=== PATIENT | male | born 1960 | race Caucasian/White ===

== ENCOUNTER 2020-09-04 08:02 | Outpatient (REF) | payer OTHER, SELFPAY ==
[2020-09-04 09:25] LABS: Estimated Average Glucose 114 mg/dL; Hemoglobin A1c % 5.6 %
[2020-09-04 12:18] LABS: PSA,Total (Free>4and<10) 2.08 ng/mL (0.00-4.00)
== END 2020-09-04 08:03 | disposition home or self-care (01) ==
LOC: HO.LAB 08:02
PROVIDERS: Visit Provider Internal Medicine
DX: R97.20 Elevated prostate specific antigen [PSA] (principal); R73.09 Other abnormal glucose
CPT/HCPCS: 83036; 84153

== ENCOUNTER 2020-09-22 06:56 | Outpatient (REF) | payer OTHER, SELFPAY ==
[2020-09-22 07:19] LABS: MANUAL DIFF FLAG NO
[2020-09-22 07:22] LABS: Basophils Percent Auto 0.5 % (0-2); Eosinophils Absolute Auto 0.4 X10*3/uL (0.0-0.4); Eosinophils Percent Auto 7.6 % (0-4); Hematocrit 46.6 % (42-52); Hemoglobin 15.1 g/dl (14.0-18.0); Imm Gran Abs Auto 0.01 X10*3/uL (0.00-0.03); Imm Gran Pct Auto 0.2 % (0.0-0.4); Lymphocytes Percent Auto 36.8 % (20-40); Mean Corpuscular HGB Conc 32.4 g/dl (31.0-36.0); Mean Corpuscular Volume 92.6 fL (80-98); Mean Platelet Volume 9.9 fL (9.4-12.4); Monocytes Absolute Auto 0.5 X10*3/uL (0.1-1.2); Monocytes Percent Auto 8.8 % (2-11); Neutrophils Absolute Auto 2.6 X10*3/uL (2.0-8.3); Neutrophils Percent Auto 46.1 % (45-73); Platelet Count 220 X10*3/uL (160-400); Red Blood Count 5.03 X10*6/uL (4.60-5.80); Red Cell Distribution Width 12.1 % (11.0-16.0); White Blood Count 5.5 X10*3/uL (4.8-10.8)
[2020-09-22 07:57] LABS: Alanine Aminotransferase 18 U/L (0-40); Albumin Level 4.6 g/dL (3.5-5.0); Alkaline Phosphatase 48 U/L (39-117); Anion Gap 13 (12-20); Aspartate Amino Transferase 16 U/L (5-37); Bilirubin Total 0.7 mg/dL (0.0-1.0); Blood Urea Nitrogen 25 mg/dL (9-16); Calcium 8.9 mg/dL (8.4-10.2); Carbon Dioxide 28 mmol/L (22-29); Chloride 105 mmol/L (96-108); Cholesterol 189 mg/dL; Estimated Glomerular Filt Rate > 60; Glucose Random 108 mg/dL (60-115); HDL Cholesterol 83 mg/dL; LDL Cholesterol Calculated 88 mg/dl; Potassium 4.3 mmol/l (3.3-5.1); Sodium 142 mmol/L (135-145); Total Protein 7.2 g/dL (6.5-8.0); Triglycerides 93 mg/dL
[2020-09-22 08:19] LABS: Free T4 (Free Thyroxine) 1.08 ng/dL (0.71-1.85); Thyroid Stimulating Hormone 1.48 uIU/mL (0.32-4.0)
[2020-09-22 09:17] LABS: Folate 16.2 ng/mL (> or = 4.0); Vitamin B12 454 pg/mL (200-900)
== END 2020-09-22 06:57 | disposition home or self-care (01) ==
LOC: HO.LAB 06:56
PROVIDERS: PCP Internal Medicine; Visit Provider Internal Medicine
DX: I25.10 Atherosclerotic heart disease of native coronary artery without angina pectoris (principal); I10 Essential (primary) hypertension; E78.00 Pure hypercholesterolemia, unspecified
CPT/HCPCS: 36415; 80053; 80061; 82607; 82746; 84439; 84443; 85025

== ENCOUNTER 2020-12-02 06:21 | Inpatient (IN) | payer OTHER, SELFPAY ==
[2020-12-02] VITALS (11 sets, daily range): BP systolic 102–137; BP diastolic 51–71; PULSE 65–90; RESP 16–32; TEMP 35.7–39.1; O2SAT 94–98; BMI 22.1
--- NOTE | ~2020-12-02 | XR_ITS ---
EXAMINATION: XR CHEST CLINICAL INFORMATION: Weakness, confusion, rales right base. COMPARISON: Chest radiographs 09/21/2012, 02/02/2009. TECHNIQUE: Portable upright AP x2 views of the chest was obtained. FINDINGS: There is coarsening of the bronchiolar markings bilateral lower zones with suggestion small groundglass opacities right lateral base and left posterior base. There is no lobar or segmental airspace consolidation. The heart is normal in size. The vascularity is normal. The costophrenic sulci are clear. The hilar and mediastinal contours are normal. Bony structures are unremarkable. XR/XR chest 1V IMPRESSION: Coarsening bronchiolar markings bilateral lower zones with mild bibasilar groundglass opacities. Findings may be related to atypical/viral pneumonia.
--- NOTE | ~2020-12-02 | CT_ITS ---
EXAMINATION: CT HEAD WITHOUT CONTRAST CLINICAL INFORMATION: Change in mental status, confusion. COMPARISON: CT brain 04/07/2011 TECHNIQUE: Contiguous axial imaging was performed from the skull base to vertex without intravenous administration of contrast. Additional 2-D coronal and sagittal reformatted images are generated on the CT workstation and uploaded to PACS. This CT examination was performed using dose optimization techniques as appropriate, variously including the following: *Automated exposure control *Adjustment of mA and/or kV according to patient size (this includes techniques or standardized protocols for targeted exams where dose is matched to indication/reason for exam; i.e. extremities or head) *Use of iterative reconstruction technique DLP: 698 mGy-cm FINDINGS: There is no intracranial hemorrhage, hematoma, or extra-axial fluid collection. The ventricles are normal in size. There is no hydrocephalus, edema, or mass effect. The olivera-white matter differentiation appears symmetric. There is no visible acute territorial infarct or mass lesion. Incidental left scleral banding. The calvarium appears intact. There is no pneumocephalus or orbital emphysema. The visualized sinuses and middle ears and mastoid air cells show no significant mucosal thickening. There are no air-fluid levels. CT/CT head/brain wo con IMPRESSION: No acute intracranial abnormality.
--- NOTE | 2020-12-02 06:51 | PC.NURSE ---
Per patient's brother (Deni), [employer] called Deni to let him know that Sher has not shown up to work over the weekend, and was late for other shifts throughout the week, which is unlike the patient. 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 When Deni contacted the patient about missing work, he thought his breathing just seems weird, like he's just working harder. So I asked him if he was coughing or having chest pain, and he said 'yes' to me on the phone. Then when I got to his house, I noticed that he had a bowel movement in his bed and wasn't going to the bathroom for some reason. When I told him to get dressed to bring him to the ER, he walked around naked holding his underwear and I had to help him get dressed. These behaviors aren't like him. I looked at his pill box, and noticed that he hasn't been taking his medications since Monday. He takes Aspirin 81mg and Simvastatin. I'm not sure if he maybe got exposed to COVID at work or not by accident, but he always wears his mask at work. Information relayed to and Leah Rios RN.
--- NOTE | 2020-12-02 07:46 | ED_ITS ---
HPI - General Adult General Chief complaint: Altered Mental Status Stated complaint: SOB Time Seen by Provider: 12/02/20 07:08 Source: patient, family and RN notes reviewed Limitations: altered mental status History of Present Illness HPI narrative: 60-year-old male brought to the emergency department by his brother for evaluation of confusion with unknown onset time, possibly 4-5 days. The patient is oriented to person and place, he was not able to tell me his age, he was not able to tell me the year, he was able to state his date. 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 The following information was obtained from the patient's brother by the ED nurse, please see the information below. Per patient's brother (Deni), [employer] called Deni to let him know that Sher has not shown up to work over the weekend, and was late for other shifts throughout the week, which is unlike the patient. 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 When Deni contacted the patient about missing work, he thought his breathing just seems weird, like he's just working harder. So I asked him if he was coughing or having chest pain, and he said 'yes' to me on the phone. Then when I got to his house, I noticed that he had a bowel movement in his bed and wasn't going to the bathroom for some reason. When I told him to get dressed to bring him to the ER, he walked around naked holding his underwear and I had to help him get dressed. These behaviors aren't like him. I looked at his pill box, and noticed that he hasn't been taking his medications since Monday. He takes Aspirin 81mg and Simvastatin. I'm not sure if he maybe got exposed to COVID at work or not by accident, but he always wears his mask at work. Related Data Home Medications Medication Instructions Recorded Confirmed aspirin 81 mg tablet,delayed 81 mg PO DAILY 09/11/20 12/02/20 release Previous Rx's Medication Instructions Recorded simvastatin 40 mg tablet 40 mg PO BEDTIME #90 cap 08/28/20 Allergies Allergy/AdvReac Type Severity Reaction Status Date / Time No Known Allergies Allergy Verified 12/02/20 06:39 Review of Systems Review of Systems: Yes Unobtainable due to mental status REPLACED BY [facility] Past Medical History Medical History Atrial fibrillation CAD (coronary artery disease) Central retinal vein occlusion, left eye Cognitive impairment COPD (chronic obstructive pulmonary disease) CVA (cerebral vascular accident) Hypercholesterolemia Hypertension Peripheral vascular disease Seizure disorder Vitamin D deficiency Surgical History History of cataract surgery History of prostate biopsy History of toe surgery Family History Family History Father Hypertension Mother CVD (cardiovascular disease) Stroke Myocardial infarction Maternal Grandmother Rectal cancer Paternal Uncle Gastric cancer Maternal Uncle Stroke Social History Social History Alcohol intake: never Smoking Status: Never smoker Use of substances other than those prescribed or required for medical reasons: No Advance Directives: No Physical Exam Vital Signs: Vital Signs: Last Vital Signs Temp 98.6 F 12/02/20 07:35 Pulse 84 12/02/20 11:19 Resp 32 H 12/02/20 11:19 BP 125/61 12/02/20 11:19 Pulse Ox 97 12/02/20 11:19 Body Mass Index 22.1 Const: General: cooperative Orientation/consciousness: oriented to person and oriented to place Limitations: no limitations HENMT: Head: Yes normal to inspection, Yes normocephalic and Yes atraumatic Ears: external ears normal General nose exam: Normal external nose present Face and sinus: Yes normal facial exam Mouth: Normal oral and palatal mucosa present Throat: Yes posterior oropharynx normal Eyes: Periorbital: periorbital findings normal Eyelids: Yes eyelids normal Conjunctivae: conjunctivae normal Sclerae: sclerae normal Corneas: corneas normal Pupils: Equal, round and reactive pupils present Direct Ophthalmoscopy: normal light reflex Neck: Neck: Yes full ROM, Yes no lymphadenopathy, Yes no meningeal signs, Yes trachea midline and Yes supple Chest: Chest palpation & inspection: normal inspection of the chest and normal palpation of entire chest wall Resp: Effort & Inspection: normal respiratory effort and able to speak in complete sentences Auscultation: rales on the right at the base Cardio: Rate: regular rate Rhythm: regular rhythm Heart sounds: S1 normal heart sound present, S2 normal heart sound present and no murmurs GI: Inspection: Yes normal to inspection Palpation (GI): Soft to palpation, nontender, no guarding, not rigid and No hepatosplenomegaly present : General: Yes no CVA tenderness Back/Spine/Pelvis: Back: no CVA tenderness Cervical Spine: normal cervical lordosis Thoracic/Lumbar Spine: thoracic and lumbar spine normal to inspection Skin: Lesions: no lesions Rashes: no rashes Wounds: no wounds Neuro: General: oriented to person, oriented to place and no meningeal signs Cranial nerves: Yes CN's II-XII intact bilaterally and Yes Equal, round and reactive pupils present Cognition (Neuro): normal cognition Motor exam (neuro): 5/5 motor strength present throughout Extrem: General: Yes normal to inspection and Yes full ROM Psych: Appearance: well kempt Speech and movement: Normal speech and movement present Affect: normal affect Attitude: cooperative Thought process: Normal thought process present Thought content: Normal thought content present Course Course Course Narrative: 60-year-old male who presents emergency department for evaluation of altered level of consciousness, information was obtained from the patient's brother. The patient's symptoms may have been going on for 4-5 days, patient may have had a cough and shortness of breath. On physical examination, the patient is awake, alert, oriented to person and place, it is unclear if his inability to answer questions is due cognitive impairment caused by cardiac arrest 18 was 13 years old. Patient's vital signs reveal that it was afebrile, O2 saturation was 96% on room air, respiratory rate varied from 16-30, blood pre ssure was 108/61 with a normal map of 76. Lung exam did reveal rales at the right base concerned the patient may have pneumonia. I ordered a septic workup, COVID-19 screen , chest x-ray and CT scan of the brain. Patient was ordered to get normal saline bolus 30 milliliters/kilogram IV. 0933: The patient's laboratory evaluation revealed an elevated BUN of 32 with a creatinine of 1.14 suggesting that is volume depleted. The patient's COVID-19 test is positive. Chest x-ray is concerning for bilateral interstitial pneumonia which is most likely a COVID-19 viral pneumonia however atypical b acterial pneumonia also needs be considered. I did order ceftriaxone 1 g IV and azithromycin 500 mg IV. Was also ordered to get Decadron 10 mg IV. The patient does have elevation in his LFTs with an AST and ALT of 62 and 50. I suspect that this patient is hypoxic and this may be the cause of his confusion at home. The patient lives alone and does have cognitive impairment and I do not think that he can be managed as an outpatient. I will discuss the patient's presentation with the covering hospitalist. 1000: I did discuss the patient's presentation with the covering hospitalist, the patient will be admitted for COVID-19 pneumonia and encephalopathy. An ABG was ordered to evaluate for possible hypoxia. 1122: Patient's ABG revealed no significant hypoxia. I did discuss my findings with the patient's brother, Deni who is the patient's healthcare proxy and power of insurance defense attorney. The brother states that he and the patient want to pursue all possible medical management but they do not want intubation or chest compressions in the event that he decompensates. Medical Decision Making Lab Data Result diagrams: 12/02/20 08:30 12/02/20 08:30 Labs: Lab Results 12/02/20 12/02/20 12/02/20 Range/Units 08:30 08:30 08:30 WBC 10.3 (4.8-10.8) X10*3/uL RBC 4.95 (4.60-5.80) X10*6/uL Hgb 14.8 (14.0-18.0) g/dl Hct 44.0 (42-52) % MCV 88.9 (80-98) fL MCH 29.9 (27.0-33.0) pg MCHC 33.6 (31.0-36.0) g/dl RDW 11.8 (11.0-16.0) % Plt Count 193 (160-400) X10*3/uL MPV 10.3 (9.4-12.4) fL Immature Gran % (Auto) 0.3 (0.0-0.4) % Neut % (Auto) 86.4 H (45-73) % Lymph % (Auto) 6.1 L (20-40) % Elmore % (Auto) 7.1 (2-11) % Eos % (Auto) 0.0 (0-4) % Baso % (Auto) 0.1 (0-2) % Lymph # (Auto) 0.6 L (1.2-4.9) X10*3/uL Elmore # (Auto) 0.7 (0.1-1.2) X10*3/uL Eos # (Auto) 0.0 (0.0-0.4) X10*3/uL Baso # (Auto) 0.0 (0.0-0.2) X10*3/uL Abs Immat Gran (auto) 0.03 (0.00-0.03) X10*3/uL Absolute Neuts (auto) 8.9 H (2.0-8.3) X10*3/uL Absolute Nucleated RBC 0.000 (0.0-0.012) X10*3/uL Nucleated RBC % (auto) 0.0 (0.0-0.2) /100WBC Smear Tech's Comments VERIFIED ESR (0-15) MM/HR PT 16.1 H (10.8-13.0) SEC INR 1.4 H (0.9-1.1) APTT 35.9 (24.1-38.0) SEC D-Dimer 619 NG/ML O2 Saturation % ABG pH at Pt Temp (7.35-7.45) ABG pCO2 at Pt Temp (32-45) mmHg ABG pO2 at Pt Temp (83-108) mmHg ABG HCO3 (22-26) mmol/L ABG Base Excess (Actual) mmol/L Sodium 136 (135-145) mmol/L Potassium 3.9 (3.3-5.1) mmol/L Chloride 97 (96-108) mmol/L Carbon Dioxide 27 (22-29) mmol/L Anion Gap 16 (12-20) BUN 32 H (9-16) mg/dL Creatinine 1.14 (0.5-1.4) mg/dL Estim Creat Clear Calc 66.5 Estimated GFR > 60 Random Glucose 111 (60-115) mg/dL Lactic Acid (0.5-2.0) mmol/L Calcium 8.4 (8.4-10.2) mg/dL Ferritin 2485 H (20-250) ng/mL Total Bilirubin 1.1 H (0.0-1.0) mg/dL AST 62 H (5-37) U/L ALT 50 H (0-40) U/L Alkaline Phosphatase 43 (39-117) U/L Lactate Dehydrogenase 499 H (118-273) U/L Troponin I High Sens (<3.5-35.0) ng/L C-Reactive Protein 16.34 H (< or = 0.50) mg/dL Total Protein 7.1 (6.5-8.0) g/dL Albumin 4.1 (3.5-5.0) g/dL Lipase 48 (8-78) U/L TSH 0.48 (0.32-4.0) uIU/mL Ethyl Alcohol mg/dL COVID-19 ([facility]) (Negative) COVID-19 Clin Com 12/02/20 12/02/20 12/02/20 Range/Units 08:30 08:30 08:30 WBC (4.8-10.8) X10*3/uL RBC (4.60-5.80) X10*6/uL Hgb (14.0-18.0) g/dl Hct (42-52) % MCV (80-98) fL MCH (27.0-33.0) pg MCHC (31.0-36.0) g/dl RDW (11.0-16.0) % Plt Count (160-400) X10*3/uL MPV (9.4-12.4) fL Immature Gran % (Auto) (0.0-0.4) % Neut % (Auto) (45-73) % Lymph % (Auto) (20-40) % Elmore % (Auto) (2-11) % Eos % (Auto) (0-4) % Baso % (Auto) (0-2) % Lymph # (Auto) (1.2-4.9) X10*3/uL Elmore # (Auto) (0.1-1.2) X10*3/uL Eos # (Auto) (0.0-0.4) X10*3/uL Baso # (Auto) (0.0-0.2) X10*3/uL Abs Immat Gran (auto) (0.00-0.03) X10*3/uL Absolute Neuts (auto) (2.0-8.3) X10*3/uL Absolute Nucleated RBC (0.0-0.012) X10*3/uL Nucleated RBC % (auto) (0.0-0.2) /100WBC Smear Tech's Comments ESR (0-15) MM/HR PT (10.8-13.0) SEC INR (0.9-1.1) APTT (24.1-38.0) SEC D-Dimer NG/ML O2 Saturation % ABG pH at Pt Temp (7.35-7.45) ABG pCO2 at Pt Temp (32-45) mmHg ABG pO2 at Pt Temp (83-108) mmHg ABG HCO3 (22-26) mmol/L ABG Base Excess (Actual) mmol/L Sodium (135-145) mmol/L Potassium (3.3-5.1) mmol/L Chloride (96-108) mmol/L Carbon Dioxide (22-29) mmol/L Anion Gap (12-20) BUN (9-16) mg/dL Creatinine (0.5-1.4) mg/dL Estim Creat Clear Calc Estimated GFR Random Glucose (60-115) mg/dL Lactic Acid 1.3 (0.5-2.0) mmol/L Calcium (8.4-10.2) mg/dL Ferritin (20-250) ng/mL Total Bilirubin (0.0-1.0) mg/dL AST (5-37) U/L ALT (0-40) U/L Alkaline Phosphatase (39-117) U/L Lactate Dehydrogenase (118-273) U/L Troponin I High Sens 5.1 (<3.5-35.0) ng/L C-Reactive Protein (< or = 0.50) mg/dL Total Protein (6.5-8.0) g/dL Albumin (3.5-5.0) g/dL Lipase (8-78) U/L TSH (0.32-4.0) uIU/mL Ethyl Alcohol mg/dL COVID-19 ([facility]) Positive A (Negative) COVID-19 Clin Com See Note 12/02/20 12/02/20 12/02/20 Range/Units 08:30 08:30 10:28 WBC (4.8-10.8) X10*3/uL RBC (4.60-5.80) X10*6/uL Hgb (14.0-18.0) g/dl Hct (42-52) % MCV (80-98) fL MCH (27.0-33.0) pg MCHC (31.0-36.0) g/dl RDW (11.0-16.0) % Plt Count (160-400) X10*3/uL MPV (9.4-12.4) fL Immature Gran % (Auto) (0.0-0.4) % Neut % (Auto) (45-73) % Lymph % (Auto) (20-40) % Elmore % (Auto) (2-11) % Eos % (Auto) (0-4) % Baso % (Auto) (0-2) % Lymph # (Auto) (1.2-4.9) X10*3/uL Elmore # (Auto) (0.1-1.2) X10*3/uL Eos # (Auto) (0.0-0.4) X10*3/uL Baso # (Auto) (0.0-0.2) X10*3/uL Abs Immat Gran (auto) (0.00-0.03) X10*3/uL Absolute Neuts (auto) (2.0-8.3) X10*3/uL Absolute Nucleated RBC (0.0-0.012) X10*3/uL Nucleated RBC % (auto) (0.0-0.2) /100WBC Smear Tech's Comments ESR 59 H (0-15) MM/HR PT (10.8-13.0) SEC INR (0.9-1.1) APTT (24.1-38.0) SEC D-Dimer NG/ML O2 Saturation 96.0 % ABG pH at Pt Temp 7.46 H (7.35-7.45) ABG pCO2 at Pt Temp 27 L (32-45) mmHg ABG pO2 at Pt Temp 81 L (83-108) mmHg ABG HCO3 19 L (22-26) mmol/L ABG Base Excess (Actual) -2.7 mmol/L Sodium (135-145) mmol/L Potassium (3.3-5.1) mmol/L Chloride (96-108) mmol/L Carbon Dioxide (22-29) mmol/L Anion Gap (12-20) BUN (9-16) mg/dL Creatinine (0.5-1.4) mg/dL Estim Creat Clear Calc Estimated GFR Random Glucose (60-115) mg/dL Lactic Acid (0.5-2.0) mmol/L Calcium (8.4-10.2) mg/dL Ferritin (20-250) ng/mL Total Bilirubin (0.0-1.0) mg/dL AST (5-37) U/L ALT (0-40) U/L Alkaline Phosphatase (39-117) U/L Lactate Dehydrogenase (118-273) U/L Troponin I High Sens (<3.5-35.0) ng/L C-Reactive Protein (< or = 0.50) mg/dL Total Protein (6.5-8.0) g/dL Albumin (3.5-5.0) g/dL Lipase (8-78) U/L TSH (0.32-4.0) uIU/mL Ethyl Alcohol < 10 mg/dL COVID-19 ([facility]) (Negative) COVID-19 Clin Com Imaging Data Chest x-ray: Attestation: I personally reviewed and interpreted this imaging study as follows: My impression: Bilateral interstitial infiltrates consistent with acute viral pneumonia versus atypical bacterial pneumonia Radiologist's impression: IMPRESSION: Coarsening bronchiolar markings bilateral lower zones with mild bibasilar groundglass opacities. Findings may be related to atypical/viral pneumonia. Dictated By:MIKEY HERNANDEZ MD ECG Data Attestation: I personally reviewed and interpreted this ECG as follows: Interpretation: 0828: Normal sinus rhythm with a rate of 81, normal OH interval, prolonged QRS interval of 104 milliseconds, normal QTC interval, no ST segment elevation or depression, no T-wave abnormalities, nonspecific interventricular conduction delay, no old EKG for comparison. Discharge Plan Discharge Clinical Impression: Pneumonia due to COVID-19 virus, Encephalopathy, Tachypnea, Acute dehydration Patient Disposition: Admitted As Inpatient
--- NOTE | 2020-12-02 08:01 | ECG_ITS ---
Test Reason : ALTER MENTAL Blood Pressure : / mmHG Vent. Rate : 081 BPM Atrial Rate : 081 BPM P-R Int : 134 ms QRS Dur : 104 ms QT Int : 368 ms P-R-T Axes : 073 013 061 degrees QTc Int : 427 ms Normal sinus rhythm Normal ECG When compared with ECG of 04-NOV-2016 14:43, No significant change was found Referred By: Reynold Romero Electronically Signed By:Bandar Zamora
[2020-12-02 08:45] LABS: Basophils Percent Auto 0.1 % (0-2); Hemoglobin 14.8 g/dl (14.0-18.0); Imm Gran Abs Auto 0.03 X10*3/uL (0.00-0.03); Imm Gran Pct Auto 0.3 % (0.0-0.4); Lymphocytes Absolute Auto 0.6 X10*3/uL (1.2-4.9); Lymphocytes Percent Auto 6.1 % (20-40); MANUAL DIFF FLAG SCAN; Mean Corpuscular HGB Conc 33.6 g/dl (31.0-36.0); Mean Corpuscular Hemoglobin 29.9 pg (27.0-33.0); Mean Corpuscular Volume 88.9 fL (80-98); Mean Platelet Volume 10.3 fL (9.4-12.4); Monocytes Absolute Auto 0.7 X10*3/uL (0.1-1.2); Monocytes Percent Auto 7.1 % (2-11); Neutrophils Absolute Auto 8.9 X10*3/uL (2.0-8.3); Neutrophils Percent Auto 86.4 % (45-73); Platelet Count 193 X10*3/uL (160-400); Red Blood Count 4.95 X10*6/uL (4.60-5.80); Red Cell Distribution Width 11.8 % (11.0-16.0); SCAN SMEAR FLAG 1; White Blood Count 10.3 X10*3/uL (4.8-10.8)
[2020-12-02 08:48] LABS: COVID-19 Test Positive (Negative); IDNOW Serial# 9DD0AD1C; INTERNATIONAL NORM RATIO 1.4 (0.9-1.1); Prothrombin Time 16.1 SEC (10.8-13.0)
[2020-12-02 08:51] LABS: Partial Thromboplastin Time 35.9 SEC (24.1-38.0)
[2020-12-02 09:00] LABS: Lactic Acid 1.3 mmol/L (0.5-2.0)
[2020-12-02 09:03] LABS: Ethanol < 10 mg/dL
[2020-12-02 09:07] LABS: Alanine Aminotransferase 50 U/L (0-40); Albumin Level 4.1 g/dL (3.5-5.0); Alkaline Phosphatase 43 U/L (39-117); Anion Gap 16 (12-20); Aspartate Amino Transferase 62 U/L (5-37); Bilirubin Total 1.1 mg/dL (0.0-1.0); Blood Urea Nitrogen 32 mg/dL (9-16); Calcium 8.4 mg/dL (8.4-10.2); Carbon Dioxide 27 mmol/L (22-29); Chloride 97 mmol/L (96-108); Creatinine Clr Calc Pharmacy 66.5; Estimated Glomerular Filt Rate > 60; Glucose Random 111 mg/dL (60-115); Lipase 48 U/L (8-78); Potassium 3.9 mmol/L (3.3-5.1); SLIDE REVIEW VERIFIED; Sodium 136 mmol/L (135-145); Total Protein 7.1 g/dL (6.5-8.0)
[2020-12-02 09:12] LABS: Troponin-I High Sensitivity 5.1 ng/L (<3.5-35.0)
[2020-12-02 09:27] LABS: TSH reflex Free T4 0.48 uIU/mL (0.32-4.0)
[2020-12-02 09:56] LABS: C Reactive Protein 16.34 mg/dL (< or = 0.50); D Dimer 619 NG/ML; Lactate Dehydrogenase 499 U/L (118-273)
[2020-12-02 10:32] LABS: ABG Refer to POC result
[2020-12-02 10:33] LABS: ABG Base Excess -2.7 mmol/L; ABG HCO3 19 mmol/L (22-26); ABG pCO2 27 mmHg (32-45); ABG pH 7.46 (7.35-7.45); ABG pO2 81 mmHg (83-108)
[2020-12-02 10:35] LABS: Erythrocyte Sedimentation Rate 59 MM/HR (0-15)
[2020-12-02 11:10] LABS: Ferritin 2485 ng/mL (20-250)
[2020-12-02] MEDS: 0.9 % Sodium Chloride 2,100 ML 2100 ML IVCONT (11:14)
[2020-12-02] MEDS: cefTRIAXone sodium 1 GM in 0.9 % Sodium Chloride 50 ML IV (11:14)
--- NOTE | 2020-12-02 11:29 | PC.NURSE ---
ABT HUNG ORDERED. RECTAL TEMP ELEVATED, AND SOME EXCORIATION NOTED AROUND PERINEUM. PT A&OX3 AT THIS TIME, SPEAKING IN CLEAR FULL SNENTECES. CURRENT SPO2 WNL, NOT CURRENTLY DEPENDENT ON SUPPLEMENTAL O2. REMAINS TACHYPNEIC, PT REPORTING SOB. HAS BEEN EVALUATED BY HOSPITALIST, TO BE ADMITTED. MED REC COMPLETED AT BEDSIDE.
[2020-12-02 11:44] LABS: Ammonia 32 umol/L (13-55)
[2020-12-02] MEDS: Acetaminophen 325 MG TABLET 975 MG PO (12:02)
[2020-12-02] MEDS: Azithromycin 500 MG in 0.9 % Sodium Chloride 250 ML 125 MG IV (12:04)
--- NOTE | 2020-12-02 12:06 | PM.IMHP ---
History of Present Illness Date of Service: 12/02/20 Chief Complaint: confusion This is a 60-year-old male with a past medical history of cardiac arrest at 13 years old, paroxysmal atrial fibrillation, Zhdsw-Iwtgphbyo-Fehye syndrome status post ablation who presents to hospital after a wellness check was requested by his brother as the patient had reportedly not shown up to [employer] where he works for the last several days. Patient has a history of cognitive impairment and so the history is largely obtained from the ED provider and the patient's brother, Deni also the healthcare proxy. Reportedly the patient was last visited by his brother 1 week prior to admission on 11/25/2020 and his brother also spoke to him on 11/27/2020 at which time he reports that the patient was at baseline. Deni received a phone call from [employer] reporting that the patient had showed a to work and so paramedics/police were called. When they arrived, the patient was reportedly confused and walking around his own home. It is unclear when the patient would have been exposed to COVID-19 but presumably this was at work as Deni reports that basically his brother spends his time between work and at home. The patient himself denies any shortness of breath but does remember feeling exhausted over the last 1 week or so. He knows that he is at the hospital but otherwise is disoriented which Jadondivine states is baseline. In the emergency room patient was found to be tachypneic with a respiratory rate in the 30s and febrile with a T-max of 102.3 degrees. His x-ray showed typical COVID findings. He was empirically treated with antibiotics, fluid bolus and Decadron and admission was requested. Review of Systems Review of Systems: Full ROS unreliable due to patients mental status (baseline confused) He does endorse feeling tired. Denies shortness of breath [facility] Medical History Atrial fibrillation CAD (coronary artery disease) Central retinal vein occlusion, left eye Cognitive impairment COPD (chronic obstructive pulmonary disease) CVA (cerebral vascular accident) Hypercholesterolemia Hypertension Peripheral vascular disease Seizure disorder Vitamin D deficiency Family History Father Hypertension Mother CVD (cardiovascular disease) Stroke Myocardial infarction Maternal Grandmother Rectal cancer Paternal Uncle Gastric cancer Maternal Uncle Stroke Surgical History History of cataract surgery History of prostate biopsy History of toe surgery Social History Alcohol intake: never Smoking Status: Never smoker Use of substances other than those prescribed or required for medical reasons: No Advance Directives: No Meds Allergies Allergy/AdvReac Type Severity Reaction Status Date / Time No Known Allergies Allergy Verified 12/02/20 06:39 Home Medications Medication Instructions Recorded Confirmed Last Taken Type aspirin 81 mg tablet,delayed 81 mg PO DAILY 09/11/20 12/02/20 1 Day Ago History release ~12/01/20 Physical Exam Vital Signs and Narrative: Vital Signs: Last Vital Signs Temp 102.3 F H 12/02/20 11:29 Pulse 84 12/02/20 11:19 Resp 32 H 12/02/20 11:19 BP 125/61 12/02/20 11:19 Pulse Ox 97 12/02/20 11:19 Body Mass Index 22.1 Const: Other: Constitutional - Awake and Alert, No apparent distress Eyes - PERRLA, EOMI Cardiovascular - S1S2, RRR, No edema Respiratory - rhonchi, RR around 22, able to speak in full sentences Gastrointestinal - NT / ND; +BS; No rebound or guarding - No CVA tenderness Extremities - no calf tenderness bilaterally, no swelling Musculoskeletal - Normal inspection, normal ROM Skin - Warm/Dry Neurological - No focal deficits, disoriented Psychological - Appropriate affect Results Labs CBC and Chem 7: 12/02/20 08:30 12/02/20 08:30 Labs: Laboratory Results - last 24 hr 12/02/20 12/02/20 12/02/20 08:30 08:30 08:30 MCV 88.9 MCH 29.9 MCHC 33.6 RDW 11.8 Plt Count 193 MPV 10.3 Immature Gran % (Auto) 0.3 Neut % (Auto) 86.4 H Lymph % (Auto) 6.1 L [place] % (Auto) 7.1 Eos % (Auto) 0.0 Baso % (Auto) 0.1 Lymph # (Auto) 0.6 L [place] # (Auto) 0.7 Eos # (Auto) 0.0 Baso # (Auto) 0.0 Abs Immat Gran (auto) 0.03 Absolute Neuts (auto) 8.9 H Absolute Nucleated RBC 0.000 Nucleated RBC % (auto) 0.0 Smear Tech's Comments VERIFIED ESR PT 16.1 H INR 1.4 H APTT 35.9 D-Dimer 619 O2 Saturation ABG pH at Pt Temp ABG pCO2 at Pt Temp ABG pO2 at Pt Temp ABG HCO3 ABG Base Excess (Actual) Anion Gap 16 Estim Creat Clear Calc 66.5 Estimated GFR > 60 Random Glucose 111 Lactic Acid Calcium 8.4 Ferritin 2485 H Total Bilirubin 1.1 H AST 62 H ALT 50 H Alkaline Phosphatase 43 Ammonia Lactate Dehydrogenase 499 H Troponin I High Sens C-Reactive Protein 16.34 H Total Protein 7.1 Albumin 4.1 Lipase 48 TSH 0.48 Ethyl Alcohol COVID-19 ([facility]) [place] 12/02/20 12/02/20 12/02/20 08:30 08:30 08:30 MCV MCH MCHC RDW Plt Count MPV Immature Gran % (Auto) Neut % (Auto) Lymph % (Auto) [place] % (Auto) Eos % (Auto) Baso % (Auto) Lymph # (Auto) [place] # (Auto) Eos # (Auto) Baso # (Auto) Abs Immat Gran (auto) Absolute Neuts (auto) Absolute Nucleated RBC Nucleated RBC % (auto) Smear Tech's Comments ESR PT INR APTT D-Dimer O2 Saturation ABG pH at Pt Temp ABG pCO2 at Pt Temp ABG pO2 at Pt Temp ABG HCO3 ABG Base Excess (Actual) Anion Gap Estim Creat Clear Calc Estimated GFR Random Glucose Lactic Acid 1.3 Calcium Ferritin Total Bilirubin AST ALT Alkaline Phosphatase Ammonia Lactate Dehydrogenase Troponin I High Sens 5.1 C-Reactive Protein Total Protein Albumin Lipase TSH Ethyl Alcohol COVID-19 ([facility]) Positive A COVID-[employer] See Note 12/02/20 12/02/20 12/02/20 08:30 08:30 10:28 MCV MCH MCHC RDW Plt Count MPV Immature Gran % (Auto) Neut % (Auto) Lymph % (Auto) [place] % (Auto) Eos % (Auto) Baso % (Auto) Lymph # (Auto) [place] # (Auto) Eos # (Auto) Baso # (Auto) Abs Immat Gran (auto) Absolute Neuts (auto) Absolute Nucleated RBC Nucleated RBC % (auto) Smear Tech's Comments ESR 59 H PT INR APTT D-Dimer O2 Saturation 96.0 ABG pH at Pt Temp 7.46 H ABG pCO2 at Pt Temp 27 L ABG pO2 at Pt Temp 81 L ABG HCO3 19 L ABG Base Excess (Actual) -2.7 Anion Gap Estim Creat Clear Calc Estimated GFR Random Glucose Lactic Acid Calcium Ferritin Total Bilirubin AST ALT Alkaline Phosphatase Ammonia Lactate Dehydrogenase Troponin I High Sens C-Reactive Protein Total Protein Albumin Lipase TSH Ethyl Alcohol < 10 COVID-19 ([facility]) COVID-19 Clin Com 12/02/20 11:17 MCV MCH MCHC RDW Plt Count MPV Immature Gran % (Auto) Neut % (Auto) Lymph % (Auto) [place] % (Auto) Eos % (Auto) Baso % (Auto) Lymph # (Auto) [place] # (Auto) Eos # (Auto) Baso # (Auto) Abs Immat Gran (auto) Absolute Neuts (auto) Absolute Nucleated RBC Nucleated RBC % (auto) Smear Tech's Comments ESR PT INR APTT D-Dimer O2 Saturation ABG pH at Pt Temp ABG pCO2 at Pt Temp ABG pO2 at Pt Temp ABG HCO3 ABG Base Excess (Actual) Anion Gap Estim Creat Clear Calc Estimated GFR Random Glucose Lactic Acid Calcium Ferritin Total Bilirubin AST ALT Alkaline Phosphatase Ammonia 32 Lactate Dehydrogenase Troponin I High Sens C-Reactive Protein Total Protein Albumin Lipase TSH Ethyl Alcohol COVID-19 ([facility]) COVID-19 Clin Com Imaging Radiologist's Impressions: Impressions Chest X-Ray 12/02/20 07:58 IMPRESSION: Coarsening bronchiolar markings bilateral lower zones with mild bibasilar groundglass opacities. Findings may be related to atypical/viral pneumonia. Head CT 12/02/20 07:58 IMPRESSION: No acute intracranial abnormality. Assessment and Plan (1) COVID-19: Status: Acute This is a 60-year-old male with a history of cognitive impairment, cardiac arrest at the age of 13, amongst other issues who presents to the hospital with confusion and is diagnosed with COVID-19. 1. COVID-19 causing viral sepsis and toxic/metabolic encephalopathy Meets sepsis criteria with tachypnea and fevers No hypoxia at this time -- will consider Remdesivir + ID consult should this happen will start IV decadron Given Rocephin/Zithromax in the ED -- procalcitonin 0.34, trend; hold off antibiotics for the time being 2. PAF / WPV s/p ablation not on any OAC continue his aspirin 3. Abnormal LFTs suspect from COVID 19 trend will hold statin DNR/DNI -- as endorsed by the patients brother Deni, who is the HCP DVT pptx, Lovenox
[2020-12-02 13:30] LABS: Procalcitonin 0.34 ng/mL
[2020-12-02] MEDS: Enoxaparin Sodium 40 MG/0.4 ML SYRINGE SUBCUT (15:00)
[2020-12-02] MEDS: 0.9 % Sodium Chloride Flush 3 ML SYRINGE IVFLUSH ×2 (15:00→23:59)
--- NOTE | 2020-12-02 17:53 | PC.NURSE ---
REPORT GIVEN TO RN
[2020-12-03 03:39] VITALS: BP 111/60; PULSE 68; RESP 18; TEMP 37; O2SAT 96
[2020-12-03 07:25] VITALS: BP 112/64; PULSE 74; RESP 17; TEMP 36.2; O2SAT 93
[2020-12-03] MEDS: 0.9 % Sodium Chloride Flush 3 ML SYRINGE IVFLUSH ×3 (07:35→20:36)
[2020-12-03] MEDS: Aspirin Enteric Coated 81 MG TABLET.DR PO (09:18)
[2020-12-03] MEDS: dexAMETHasone sod phosphate 4 MG/ML VIAL 6 MG IVPUSH (09:18)
--- NOTE | 2020-12-03 11:11 | MHC.CM.PN ---
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 Patient able to shower, dress and cook for himself. Patient does have a HCP Deni [phone] and a copy is on file. Discussed discharge plan, home no services. Deni will provide transport but needs a 2 hr window. CM will continue to follow patient for discharge needs.
[2020-12-03 11:14] VITALS: BP 119/60; PULSE 87; RESP 18; TEMP 36.8; O2SAT 95
[2020-12-03] MEDS: Enoxaparin Sodium 40 MG/0.4 ML SYRINGE SUBCUT (13:21)
--- NOTE | 2020-12-03 14:13 | PC.NURSE ---
pt was ambulatory to bathroom and had moderate loose BM. He was cleaned and walked back to recliner. Pt has had no complaints of pain, will continue to monitor
--- NOTE | 2020-12-03 14:50 | P.PNIM_ITS ---
Subjective Subjective Date of Service: 12/03/20 Interval History: The patient was seen and evaluated this morning Laying in bed, feels comfortable, weaned off the oxygen Denies any fever, chills or chest pain but feels generally tired No reported other overnight events. Systemic review: No fever, chills but reports overall weakness No chest pain, palpitation Mild shortness of breath or coughing No abdominal pain, nausea or vomiting No urinary symptoms No any rash or wounds Physical Exam Vital Signs: Vital Signs: Last Vital Signs Temp 98.3 F 12/03/20 11:14 Pulse 87 12/03/20 11:14 Resp 18 12/03/20 11:14 BP 119/60 12/03/20 11:14 Pulse Ox 95 12/03/20 11:14 Body Mass Index 22.1 Const: Other: Constitutional : Alert, oriented, not in distress Neck : Normal inspection, Supple Cardiovascular : Nausea VD, no lower extremity edema Respiratory : Not in respiratory distress, bilateral chest wall movement Gastrointestinal: soft, lax, Normal bowel sounds, Non tender Skin : Warm/Dry, No rash Neurological : Alert & oriented , mildly confused, No focal deficit Objective Data Current Medications Generic Name Dose Route Start Last Admin Trade Name Freq PRN Reason Stop Dose Admin Aspirin 81 mg 12/03/20 09:00 12/03/20 09:18 Aspirin Enteric Coated 81 Mg Tablet. PO 81 mg DAILY MYRIAM Administration Dexamethasone Sodium Phosphate 6 mg 12/03/20 09:00 12/03/20 09:18 Dexamethasone Sod Phosphate 4 Mg/Ml Vial IVPUSH 12/11/20 09:01 6 mg DAILY MYRIAM Administration Enoxaparin Sodium 40 mg 12/02/20 13:00 12/03/20 13:21 Enoxaparin Sodium 40 Mg/0.4 Ml Syringe SUBCUT 40 mg Q24H MYRIAM Administration Sodium Chloride 3 ml 12/02/20 16:00 12/03/20 07:35 0.9 % Sodium Chloride Flush 3 Ml Syringe IVFLUSH 3 ml QSHIFT MYRIAM Administration Labs CBC & Chem 7: 12/02/20 08:30 12/02/20 08:30 Microbiology Microbiology Results: Microbiology 12/02/20 08:37 Blood - Venous Blood Culture - Preliminary No growth after 24 hours. 12/02/20 08:34 Blood - Venous Blood Culture - Preliminary No growth after 24 hours. Assessment and Plan (1) COVID-19: Status: Acute Assessment and Plan: This is a 60-year-old male with a history of cognitive impairment, cardiac arr est at the age of 13, amongst other issues who presents to the hospital with confusion and is diagnosed with COVID-19. COVID-19 causing viral sepsis Toxic/metabolic encephalopathy Improving No hypoxia at this time Hold on remdesivir Continue IV decadron hold off antibiotics for the time being Transaminitis suspect from COVID 19 Continue to monitor will hold statin PAF / WPV s/p ablation not on any OAC continue his aspirin DNR/DNI -- as endorsed by the patients brother Deni, who is the HCP DVT pptx Lovenox
[2020-12-03 15:28] VITALS: BP 116/57; PULSE 82; RESP 18; TEMP 36.5; O2SAT 94
[2020-12-03 19:17] VITALS: BP 115/59; PULSE 80; RESP 18; TEMP 37; O2SAT 96
[2020-12-03 23:18] VITALS: BP 110/64; PULSE 71; RESP 20; TEMP 36; O2SAT 95
[2020-12-04 04:00] VITALS: BP 135/61; PULSE 66; RESP 18; TEMP 36.8; O2SAT 95
[2020-12-04 07:08] LABS: Alanine Aminotransferase 57 U/L (0-40); Albumin Level 3.6 g/dL (3.5-5.0); Alkaline Phosphatase 42 U/L (39-117); Anion Gap 15 (12-20); Aspartate Amino Transferase 65 U/L (5-37); Bilirubin Direct 0.3 mg/dL (0.0-0.5); Bilirubin Total 0.5 mg/dL (0.0-1.0); Blood Urea Nitrogen 23 mg/dL (9-16); C Reactive Protein 6.74 mg/dL (< or = 0.50); Calcium 8.3 mg/dL (8.4-10.2); Carbon Dioxide 26 mmol/L (22-29); Chloride 103 mmol/L (96-108); Creatinine Clr Calc Pharmacy 93.6; Estimated Glomerular Filt Rate > 60; Glucose Random 124 mg/dL (60-115); Lactate Dehydrogenase 482 U/L (118-273); Potassium 4.4 mmol/L (3.3-5.1); Sodium 140 mmol/L (135-145); Total Protein 6.2 g/dL (6.5-8.0)
[2020-12-04 07:18] VITALS: BP 115/61; PULSE 72; RESP 18; TEMP 36.6; O2SAT 93
[2020-12-04] MEDS: 0.9 % Sodium Chloride Flush 3 ML SYRINGE IVFLUSH (07:31)
[2020-12-04] MEDS: dexAMETHasone sod phosphate 4 MG/ML VIAL 6 MG IVPUSH (08:46)
[2020-12-04] MEDS: Aspirin Enteric Coated 81 MG TABLET.DR PO (08:46)
[2020-12-04 11:11] VITALS: BP 118/61; PULSE 77; RESP 16; TEMP 36.2; O2SAT 98
--- NOTE | 2020-12-04 11:13 | PM.DS ---
DS: Providers Provider Date of Service: 12/04/20 Date of admission: 12/02/20 13:19 Primary care physician: Carly Briceño MD DS: Diagnosis Discharge Diagnosis (1) COVID-19: Status: Acute (2) Pneumonia due to COVID-19 virus: Status: Acute (3) Encephalopathy: Status: Acute (4) Tachypnea: Status: Acute (5) Acute dehydration: Status: Acute DS: Medications Discharge Medications Home Medications: Home Medications Medication Instructions Recorded Confirmed aspirin 81 mg tablet,delayed 81 mg PO DAILY 09/11/20 12/02/20 release Previous Rx's Medication Instructions Recorded simvastatin 40 mg tablet 40 mg PO BEDTIME #90 cap 08/28/20 dexamethasone 6 mg PO DAILY #7 tab 12/04/20 DS: Summary Hospital Course Hospital Course: Admission note HPI This is a 60-year-old male with a past medical history of cardiac arrest at 13 years old, paroxysmal atrial fibrillation, Luqps-Bbhfhrbop-Xfngs syndrome status post ablation who presents to hospital after a wellness check was requested by his brother as the patient had reportedly not shown up to [employer] where he works for the last several days. Patient has a history of cognitive impairment and so the history is largely obtained from the ED provider and the patient's brother, Deni also the healthcare proxy. Reportedly the patient was last visited by his brother 1 week prior to admission on 11/25/2020 and his brother also spoke to him on 11/27/2020 at which time he reports that the patient was at baseline. Deni received a phone call from [employer] reporting that the patient had showed a to work and so paramedics/police were called. When they arrived, the patient was reportedly confused and walking around his own home. It is unclear when the patient would have been exposed to COVID-19 but presumably this was at work as Deni reports that basically his brother spends his time between work and at home. The patient himself denies any shortness of breath but does remember feeling exhausted over the last 1 week or so. He knows that he is at the hospital but otherwise is disoriented which Deni states is baseline. In the emergency room patient was found to be tachypneic with a respiratory rate in the 30s and febrile with a T-max of 102.3 degrees. His x-ray showed typical COVID findings. He was empirically treated with antibiotics, fluid bolus and Decadron and admission was requested. Hospital course The patient was admitted to the hospital for encephalopathy as a result COVID-19 infection dehydration. The patient did not qualify for remdesivir as he was not hypoxic but treated with IV dexamethasone with fair response. Did not require antibiotic and event spike fever during the hospital stay. He was able to ambulate freely on the room air with no drop of his oxygen. Noted to have transaminitis which likely result of COVID-19 and started to trend down along with CRP and LDH. to be discharged home on 7 more days of dexamethasone Time Spent with Patient Time attestation: Total time spent providing and/or coordinating discharge services: Discharge coordination time: Greater than 30 minutes Physical Exam Vital Signs: Vital Signs: Last Vital Signs Temp 97.9 F 12/04/20 07:18 Pulse 72 12/04/20 07:18 Resp 18 12/04/20 07:18 BP 115/61 12/04/20 07:18 Pulse Ox 93 12/04/20 07:18 Body Mass Index 22.1 Const: Other: Constitutional : Alert, oriented, not in distress Neck : Normal inspection, Supple Cardiovascular : RRR, S1 S2, no lower extremity edema Respiratory : Good bilateral air entry, no crackles, wheezes or rhonchi Gastrointestinal: soft, lax, Normal bowel sounds, Non tender Skin : Warm/Dry, No rash Neurological : Alert & oriented x3, No focal deficit DS: Data Data Completed and Pending Labs on day of discharge: Laboratory Results - last 24 hr 12/04/20 05:55 Sodium 140 Potassium 4.4 Chloride 103 Carbon Dioxide 26 Anion Gap 15 BUN 23 H Creatinine 0.81 Estim Creat Clear Calc 93.6 Estimated GFR > 60 Random Glucose 124 H Calcium 8.3 L Total Bilirubin 0.5 Direct Bilirubin 0.3 AST 65 H ALT 57 H Alkaline Phosphatase 42 Lactate Dehydrogenase 482 H C-Reactive Protein 6.74 H Total Protein 6.2 L Albumin 3.6 Preliminary micro results at discharge 12/02/20 08:37 Blood Culture - Preliminary Blood - Venous No growth after 48 hours. 12/02/20 08:34 Blood Culture - Preliminary Blood - Venous No growth after 48 hours. Discharge Plan Discharge Patient Disposition: Home, Self-Care Referrals: Carly Briceño MD [Primary Care Provider] - 1 Week (Please call and schedule a follow up appointment.) Discharge Medications: New dexamethasone 6 mg tablet 6 mg PO DAILY Qty: 7 RF: 0 Continued simvastatin 40 mg tablet 40 mg PO BEDTIME Qty: 90 RF: 1 aspirin [Adult Aspirin Regimen] 81 mg tablet,delayed release (DR/EC) 81 mg PO DAILY RF: 0 Discharge Orders: Discharge Order (Routine); Ordered 12/04/20 Ordered By: Javon Curry Diet: advance to usual diet Activity on Discharge: As tolerated Stand Alone Forms: Patient Portal Discharge page Care Plan Goals: Read below Health Concerns: Read below Plan of Treatment: You were admitted to the hospital for evaluation confusion. Found to dehydration and COVID-19 infection. Treated with IV fluid steroids with good response over the hospital stay course. Continue dexamethasone for 7 more days Keep yourself isolated for the next 7 days.
--- NOTE | 2020-12-04 12:06 | MHC.CM.PN ---
Pt is cleared to DC today, home with no services. CM met with pt who reports feeling ready to DC and being aware of the need to quarantine and follow COVID-19 precautions. CM contacted pts brother/HCP, Deni ([phone]) who reports he plans to transport pt home at [place]. Deni is aware the pt is COVID positive. He reports he was with the pt prior to admission and was the one who brought him to the ED. He reports he has a COVID test scheduled for Monday. Jadondivine reports he plans to have the pt sit in the back seat, they will both keep masks on and once pt exits the vehicle, Deni with disinfect it. Jadondivine reports he also has the pts house keys and cell phone which he will bring with him. Deni reports he lives quite a distance away and should be able to be here around 1500 hours. He will call when he arrives. Pt will be discharged home today with no services pts brother will provide transportation
[2020-12-04] MEDS: Enoxaparin Sodium 40 MG/0.4 ML SYRINGE SUBCUT (12:59)
== END 2020-12-04 14:49 | disposition home or self-care (01) | DRG 720 ==
LOC: HO.ED 10:17 → HO.EDOVER 15:06 → HO.IMC 17:16
PROVIDERS: Admitting Provider Family Medicine; Emergency Provider Emergency Medicine Emergency Medical Services; PCP Internal Medicine; Visit Provider Student in an Organized Health Care Education/Training Program
DX: A41.89 Other specified sepsis (principal); U07.1 COVID-19; G92 Toxic encephalopathy; G31.84 Mild cognitive impairment of uncertain or unknown etiology; E86.0 Dehydration; G40.909 Epilepsy, unspecified, not intractable, without status epilepticus; I48.0 Paroxysmal atrial fibrillation; R74.01 Elevation of levels of liver transaminase levels; J12.82 Pneumonia due to coronavirus disease 2019; R06.82 Tachypnea, not elsewhere classified; I25.10 Atherosclerotic heart disease of native coronary artery without angina pectoris; Z86.73 Personal history of transient ischemic attack (TIA), and cerebral infarction without residual deficits; Z79.82 Long term (current) use of aspirin; Z79.899 Other long term (current) drug therapy; Z66 Do not resuscitate
CPT/HCPCS: 36415; 70450; 71045; 80048; 80053; 80076; 80320; 82140; 82728; 83605; 83615; 83690; 84145; 84443; 84484; 85025; 85379; 85610; 85652; 85730; 86140; 87040; 87635; 93005; 96365; 96366; 96368; 96375; 99285; J0456; J0696; J1100; J1650

== ENCOUNTER 2021-09-07 06:51 | Outpatient (REF) | payer OTHER, SELFPAY ==
[2021-09-07 07:03] LABS: MANUAL DIFF FLAG NO
[2021-09-07 07:21] LABS: Basophils Percent Auto 0.5 % (0-2); Eosinophils Absolute Auto 0.5 X10*3/uL (0.0-0.4); Eosinophils Percent Auto 7.3 % (0-4); Hemoglobin 16.1 g/dl (14.0-18.0); Imm Gran Abs Auto 0.02 X10*3/uL (0.00-0.03); Imm Gran Pct Auto 0.3 % (0.0-0.4); Lymphocytes Absolute Auto 2.5 X10*3/uL (1.2-4.9); Mean Corpuscular HGB Conc 33.5 g/dl (31.0-36.0); Mean Corpuscular Hemoglobin 30.1 pg (27.0-33.0); Mean Corpuscular Volume 89.9 fL (80.0-98.0); Mean Platelet Volume 10.1 fL (9.4-12.4); Monocytes Absolute Auto 0.5 X10*3/uL (0.1-1.2); Monocytes Percent Auto 8.6 % (2-11); Neutrophils Absolute Auto 2.7 x10*3/uL (2.0-8.3); Neutrophils Percent Auto 43.3 % (45-73); Platelet Count 229 X10*3/uL (160-400); Red Blood Count 5.34 X10*6/uL (4.60-5.80); Red Cell Distribution Width 11.9 % (11.0-16.0); White Blood Count 6.3 X10*3/uL (4.8-10.8)
[2021-09-07 07:28] LABS: Estimated Average Glucose 117 mg/dL; Hemoglobin A1c % 5.7 %
[2021-09-07 07:45] LABS: Alanine Aminotransferase 15 U/L (0-40); Albumin Level 4.6 g/dL (3.5-5.0); Alkaline Phosphatase 52 U/L (39-117); Anion Gap 14 (12-20); Aspartate Amino Transferase 14 U/L (5-37); Bilirubin Total 1.2 mg/dL (0.0-1.0); Blood Urea Nitrogen 23 mg/dL (9-16); Calcium 9.7 mg/dL (8.4-10.2); Carbon Dioxide 27 mmol/L (22-29); Chloride 105 mmol/L (96-108); Cholesterol 202 mg/dL; Estimated Glomerular Filt Rate > 60; Glucose Random 99 mg/dL (60-115); HDL Cholesterol 82 mg/dL; LDL Cholesterol Calculated 97 mg/dl; Potassium 3.8 mmol/L (3.3-5.1); Sodium 142 mmol/L (135-145); Total Protein 7.2 g/dL (6.5-8.0); Triglycerides 119 mg/dL
[2021-09-07 08:11] LABS: Free T4 (Free Thyroxine) 1.01 ng/dL (0.71-1.85); Thyroid Stimulating Hormone 2.09 uIU/mL (0.32-4.0)
[2021-09-07 08:43] LABS: Prostate Specific Antigen Scr 2.42 ng/mL (<0.05-4.0)
[2021-09-07 08:46] LABS: Folate 16.6 ng/mL (> or = 4.0); Vitamin B12 487 pg/mL (200-900)
== END 2021-09-07 06:52 | disposition home or self-care (01) ==
LOC: HO.LAB 06:51
PROVIDERS: PCP Internal Medicine; Visit Provider Internal Medicine
DX: Z12.5 Encounter for screening for malignant neoplasm of prostate (principal); E78.00 Pure hypercholesterolemia, unspecified; R73.02 Impaired glucose tolerance (oral); I10 Essential (primary) hypertension
CPT/HCPCS: 36415; 80053; 80061; 82607; 82746; 83036; 84153; 84439; 84443; 85025

== ENCOUNTER 2021-10-18 06:45 | Outpatient (REF) | payer OTHER, SELFPAY ==
[2021-10-18 06:56] LABS: MANUAL DIFF FLAG NO
[2021-10-18 07:12] LABS: Basophils Percent Auto 0.7 % (0-2); Eosinophils Absolute Auto 0.4 X10*3/uL (0.0-0.4); Eosinophils Percent Auto 6.7 % (0-4); Hemoglobin 15.1 g/dl (14.0-18.0); Imm Gran Abs Auto 0.01 X10*3/uL (0.00-0.03); Imm Gran Pct Auto 0.2 % (0.0-0.4); Lymphocytes Absolute Auto 2.3 X10*3/uL (1.2-4.9); Lymphocytes Percent Auto 39.8 % (20-40); Mean Corpuscular HGB Conc 33.6 g/dl (31.0-36.0); Mean Corpuscular Volume 92.4 fL (80.0-98.0); Monocytes Absolute Auto 0.6 X10*3/uL (0.1-1.2); Monocytes Percent Auto 10.8 % (2-11); Neutrophils Absolute Auto 2.5 x10*3/uL (2.0-8.3); Neutrophils Percent Auto 41.8 % (45-73); Platelet Count 231 X10*3/uL (160-400); Red Blood Count 4.87 X10*6/uL (4.60-5.80); Red Cell Distribution Width 12.4 % (11.0-16.0); White Blood Count 5.9 X10*3/uL (4.8-10.8)
[2021-10-18 07:22] LABS: Estimated Average Glucose 111 mg/dL; Hemoglobin A1c % 5.5 %
[2021-10-18 07:35] LABS: Alanine Aminotransferase 21 U/L (0-40); Albumin Level 4.6 g/dL (3.5-5.0); Alkaline Phosphatase 50 U/L (39-117); Anion Gap 13 (12-20); Aspartate Amino Transferase 15 U/L (5-37); Blood Urea Nitrogen 21 mg/dL (9-16); Calcium 9.9 mg/dL (8.4-10.2); Carbon Dioxide 28 mmol/L (22-29); Chloride 108 mmol/L (96-108); Cholesterol 188 mg/dL; Estimated Glomerular Filt Rate > 60; Glucose Random 108 mg/dL (60-115); HDL Cholesterol 89 mg/dL; LDL Cholesterol Calculated 84 mg/dl; Sodium 145 mmol/L (135-145); Total Protein 7.2 g/dL (6.5-8.0); Triglycerides 76 mg/dL
[2021-10-18 07:55] LABS: Free T4 (Free Thyroxine) 0.91 ng/dL (0.71-1.85); Prostate Specific Antigen Scr 2.39 ng/mL (<0.05-4.0); Thyroid Stimulating Hormone 1.12 uIU/mL (0.32-4.0)
[2021-10-18 10:13] LABS: Folate 17.4 ng/mL (> or = 4.0); Vitamin B12 473 pg/mL (200-900)
== END 2021-10-18 06:46 | disposition home or self-care (01) ==
LOC: HO.LAB 06:45
PROVIDERS: PCP Internal Medicine; Visit Provider Internal Medicine
DX: E78.00 Pure hypercholesterolemia, unspecified (principal); R73.02 Impaired glucose tolerance (oral); N40.0 Benign prostatic hyperplasia without lower urinary tract symptoms; I10 Essential (primary) hypertension; Z12.5 Encounter for screening for malignant neoplasm of prostate
CPT/HCPCS: 36415; 80053; 80061; 82607; 82746; 83036; 84153; 84439; 84443; 85025

== ENCOUNTER 2022-02-08 06:29 | Outpatient (REF) | payer OTHER, SELFPAY ==
[2022-02-08 07:48] LABS: Estimated Average Glucose 114 mg/dL; Hemoglobin A1C 149.8565 umol/L; Hemoglobin A1c % 5.6 %
[2022-02-08 08:07] LABS: Alanine Aminotransferase 17 U/L (0-40); Albumin Level 4.4 g/dL (3.5-5.0); Alkaline Phosphatase 49 U/L (39-117); Anion Gap 11 (12-20); Aspartate Amino Transferase 13 U/L (5-37); Blood Urea Nitrogen 23 mg/dL (9-16); Calcium 9.4 mg/dL (8.4-10.2); Carbon Dioxide 26 mmol/L (22-29); Chloride 105 mmol/L (96-108); Cholesterol 185 mg/dL; Estimated Glomerular Filt Rate > 60; Glucose Random 105 mg/dL (60-115); HDL Cholesterol 88 mg/dL; LDL Cholesterol Calculated 89 mg/dl; Potassium 4.3 mmol/L (3.3-5.1); Sodium 138 mmol/L (135-145); Total Protein 6.9 g/dL (6.5-8.0); Triglycerides 43 mg/dL
== END 2022-02-08 06:30 | disposition home or self-care (01) ==
LOC: HO.LAB 06:29
PROVIDERS: PCP Internal Medicine; Visit Provider Internal Medicine
DX: E78.00 Pure hypercholesterolemia, unspecified (principal)
CPT/HCPCS: 36415; 80053; 80061; 83036

== ENCOUNTER 2022-08-09 06:52 | Outpatient (REF) | payer OTHER, SELFPAY ==
[2022-08-09 07:51] LABS: Estimated Average Glucose 114 mg/dL; Hemoglobin A1c % 5.6 %
[2022-08-09 08:06] LABS: Alanine Aminotransferase 23 U/L (0-40); Albumin Level 4.5 g/dL (3.5-5.0); Alkaline Phosphatase 70 U/L (39-117); Anion Gap 15 (12-20); Aspartate Amino Transferase 16 U/L (5-37); Blood Urea Nitrogen 22 mg/dL (9-16); Calcium 9.3 mg/dL (8.4-10.2); Carbon Dioxide 26 mmol/L (22-29); Chloride 107 mmol/L (96-108); Cholesterol 172 mg/dL; Estimated Glomerular Filt Rate > 60; Glucose Random 100 mg/dL (60-115); HDL Cholesterol 78 mg/dL; LDL Cholesterol Calculated 79 mg/dl; Potassium 4.2 mmol/L (3.3-5.1); Sodium 144 mmol/L (135-145); Total Protein 7.1 g/dL (6.5-8.0); Triglycerides 78 mg/dL
== END 2022-08-09 06:53 | disposition home or self-care (01) ==
LOC: HO.LAB 06:52
PROVIDERS: PCP Internal Medicine; Visit Provider Internal Medicine
DX: E78.00 Pure hypercholesterolemia, unspecified (principal)
CPT/HCPCS: 36415; 80053; 80061; 83036

== ENCOUNTER 2022-11-29 06:42 | Outpatient (REF) | payer OTHER, SELFPAY ==
[2022-11-29 06:51] LABS: MANUAL DIFF FLAG NO
[2022-11-29 07:47] LABS: Basophils Percent Auto 0.5 % (0-2); Eosinophils Absolute Auto 0.5 X10*3/uL (0.0-0.4); Eosinophils Percent Auto 8.2 % (0-4); Hematocrit 44.8 % (42.0-52.0); Hemoglobin 14.7 g/dl (14.0-18.0); Imm Gran Abs Auto 0.01 X10*3/uL (0.00-0.03); Imm Gran Pct Auto 0.2 % (0.0-0.4); Lymphocytes Percent Auto 36.2 % (20-40); Mean Corpuscular HGB Conc 32.8 g/dl (31.0-36.0); Mean Corpuscular Hemoglobin 29.4 pg (27.0-33.0); Mean Corpuscular Volume 89.6 fL (80.0-98.0); Mean Platelet Volume 10.2 fL (9.4-12.4); Monocytes Absolute Auto 0.6 X10*3/uL (0.1-1.2); Monocytes Percent Auto 11.6 % (2-11); Neutrophils Absolute Auto 2.4 x10*3/uL (2.0-8.3); Neutrophils Percent Auto 43.3 % (45-73); Platelet Count 206 X10*3/uL (160-400); Red Cell Distribution Width 12.1 % (11.0-16.0); White Blood Count 5.5 X10*3/uL (4.8-10.8)
[2022-11-29 08:17] LABS: Alanine Aminotransferase 24 U/L (0-40); Albumin Level 4.2 g/dL (3.5-5.0); Alkaline Phosphatase 57 U/L (39-117); Anion Gap 14 (12-20); Aspartate Amino Transferase 16 U/L (5-37); Bilirubin Total 1.2 mg/dL (0.0-1.0); Blood Urea Nitrogen 19 mg/dL (9-16); Calcium 8.9 mg/dL (8.4-10.2); Carbon Dioxide 24 mmol/L (22-29); Chloride 106 mmol/L (96-108); Cholesterol 149 mg/dL; Estimated Glomerular Filt Rate > 60; Glucose Random 89 mg/dL (60-115); HDL Cholesterol 78 mg/dL; LDL Cholesterol Calculated 59 mg/dl; Potassium 4.1 mmol/L (3.3-5.1); Sodium 140 mmol/L (135-145); Total Protein 6.4 g/dL (6.5-8.0); Triglycerides 62 mg/dL
[2022-11-29 08:45] LABS: Free T4 (Free Thyroxine) 0.99 ng/dL (0.71-1.85); Thyroid Stimulating Hormone 1.78 uIU/mL (0.32-4.0); Vitamin B12 474 pg/mL (200-900)
== END 2022-11-29 06:43 | disposition home or self-care (01) ==
LOC: HO.LAB 06:42
PROVIDERS: PCP Internal Medicine; Visit Provider Internal Medicine
DX: Z12.5 Encounter for screening for malignant neoplasm of prostate (principal); I25.10 Atherosclerotic heart disease of native coronary artery without angina pectoris; E78.00 Pure hypercholesterolemia, unspecified
CPT/HCPCS: 36415; 80053; 80061; 82607; 82746; 84153; 84439; 84443; 85025

== ENCOUNTER 2023-05-16 08:51 | Outpatient (AMB) | payer OTHER, SELFPAY ==
[2023-05-16 08:54] VITALS: BP 122/86; PULSE 95; O2SAT 97; BMI 24.2
--- NOTE | 2023-05-16 08:54 | A.OFFVIS_ITS ---
Intake Vital Signs 05/16/23 08:54 Height 5 ft 10 in Weight 169 lb BMI 24.2 BP 122/86 Blood Pressure Location Lt brachial Position Sitting Pulse 95 Pulse Source Pulse Oximeter Temp Source Skin Pulse Oximetry (%) 97 Oxygen Delivery Method Room Air Intake Visit Reasons: AWV Intake Note: Patient is here for an Annual Wellness Visit. 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 Patient of Dr. Briceño. Today we discussed patient's need for colon cancer screening, patient declined at this time and he would like to think about Cologuard or colonoscopy. Up-to-date with immunizations. [place] of care was reviewed with the patient and he was provided with a hi reening schedule. Healthcare proxy is on file and patient was provided with a MOLST form. [facility] Medical History Atrial fibrillation CAD (coronary artery disease) Central retinal vein occlusion, left eye Cognitive impairment COPD (chronic obstructive pulmonary disease) COVID-19 CVA (cerebral vascular accident) Hypercholesterolemia Hypertension Peripheral vascular disease Pneumonia due to COVID-19 virus Seizure disorder Vitamin D deficiency Surgical History History of cataract surgery History of prostate biopsy History of toe surgery Family History Father Hypertension Mother CVD (cardiovascular disease) Stroke Myocardial infarction Maternal Grandmother Rectal cancer Paternal Uncle Gastric cancer Maternal Uncle Stroke Social History Household Members: None Housing: Apartment Do you presently have visiting nurse or other home services: No Alcohol intake: never Patient Tobacco Use Status: Never used Tobacco e-Cigarette/Vaping Use: Never Used Second Hand Smoke Exposure: No service: No Current occupational status: employed Current occupational exposures/hazards: No Cognitive needs: No Hearing needs: No Vision needs: Yes Questionnaire Medicare Wellness Checkup [age] What gender do you identify with?: male During the past 4 weeks, how much have you been bothered by emotional problems such as feeling anxious, depressed, irritable, sad or downhearted, and blue?: not at all During the past 4 weeks, has your physical & emotional health limited your social activities with family, friends, neighbors, or groups?: not at all During the past 4 weeks, how much bodily pain have you generally had?: no pain During the past 4 weeks, was someone available to help you if you needed & wanted help?: no, not at all During the past 4 weeks, what was the hardest physical activity you could do for at least 2 minutes?: light Can you get to places out of walking distance without help? (For eg., can you travel alone on buses, taxis or drive your car?): Yes Can you go shopping for groceries or clothes without someone's help?: Yes Can you prepare your own meals?: Yes Can you do your housework without help?: Yes Because of any health problems, do you need the help of another person with your personal care needs such as eating, bathing, dressing or getting around the house?: No Can you handle your own money without help?: Yes During the past 4 weeks, how would you rate your health in general?: excellent During the past 4 weeks how have things been going for you?: pretty well Are you having difficulties driving your car?: not applicable, I don't use a car Do you always fasten your seat belt when you are in a car?: yes, usually During past 4 weeks, have you been bothered by the following: never: Falling or dizzy when standing up, Sexual problems?, Teeth or denture problems? and Problems using the telephone? and sometimes: Trouble eating well? and Tiredness or fatigue? Have you fallen 2 or more times in the past year?: No Are you afraid of falling?: No Are you a smoker?: no During the past 4 weeks, how many drinks of wine, beer, or other alcoholic beverages did you have?: no alcohol at all Have you been given information to help with the following?: no: Hazards in your house that might hurt you? and no: Keeping track of your medications? How often do you have trouble taking medicines the way you have been told to take them?: I always take medicine as prescribed How confident are you that you can control & manage most of your health problems?: very confident What is your race?: White Mini Mental State Exam (MMSE) Orientation What is the (year) (season) (date) (day) (month)?: year, season, date, day and month Score Score: 5 Activity of Daily Living Bathing - sponge bath, tub bath or shower: receives no assistance (gets in/out by self, if usual bathing means Dressing - getting clothes from closets & drawers, including inner/outer garments & fasteners.: gets clothes & gets completely dressed without help Toileting - going to the 'toilet room' for urine/bowel elimination & cleaning self/arranging clothes: goes to toilet room, cleans self, arranges clothes without help Transfer: moves in & out of bed and chair without help (may use support object) Continence: controls urination/bowel movements completely by self Feeding: feeds self without help Total Score: 0 Information obtained from: patient Using telephone: independent Traveling: dependent Shopping: independent Preparing meals: independent Housework: independent Taking medicine: independent Managing money: independent PHQ-9 Over the last 2 weeks, how often have you been bothered by any of the following problems? 1. Little interest or pleasure in doing things: not at all 2. Feeling down, depressed, or hopeless: not at all 3. Trouble falling or staying asleep, or sleeping too much: not at all 4. Feeling tired or having little energy: not at all 5. Poor appetite or overeating: not at all 6. Feeling bad about yourself - or that you are a failure or have let yourself or your family down: not at all 7. Trouble concentrating on things, such as reading the newspaper or watching television: not at all 8. Moving or speaking so slowly that other people could have noticed. Or the opposite - being so fidgety or restless that you have been moving around a lot more than usual: not at all 9. Thoughts that you would be better off or of hurting yourself in some way: not at all Total score: 0 Depression Screening Interpretation: Negative 80599 - PHQ-9 Billing: Yes Source: Developed by Drs. Martir Montiel, Sarah Garcia, Virgilio Sage and colleagues, with an educational dolores from [employer]. JOYCE-7 AMB Questionnaire JOYCE-7 Date JOYCE - 7 assessed: 12/15/22 Feeling nervous, anxious, or on edge: 0 = Not at all Not being able to stop or control worryin = Not at all Worrying too much about different things: 0 = Not at all Trouble relaxin = Not at all Being so restless that it is hard to sit still: 0 = Not at all Becoming easily annoyed or irritable: 0 = Not at all Feeling afraid as if something awful might happen: 0 = Not at all Total JOYCE-7 score (0-4 normal; 5-9 mild; 10-14 moderate; 15-21 severe): 0 Source: Developed by Drs. Martir Montiel, Sarah Garcia, Virgilio Sage and colleagues, with an educational dolores from [employer]. JOYCE-7 Assessment Billing JOYCE-7 Assessment Tool: JOYCE-7 Assessment 49136 AUDIT C Alcohol Use Questionnaire (AUDIT-C) 1. How often do you have a drink containing alcohol?: Never Total Score: 0 Score Reviewed/Action Taken: No Thrive Questionnaire Date Thrive assessed: 05/16/23 I am a: Patient What is your living situation today?: I have a steady place to live Within the past 12 months, did the food you bought not last and you didn't have the money to get more?: Never true Within the past 12 months, did you worry whether your food would run out before you got money to buy more?: Never true Currently or been in a relationship where the following occur: no concerns reported Physical Exam Vital Signs: Last Vital Signs Pulse 95 05/16/23 08:54 BP 122/86 05/16/23 08:54 Pulse Ox 97 05/16/23 08:54 Oxygen Delivery Method Room Air 05/16/23 08:54 BMI result Body Mass Index 24.2 Const General: cooperative and no acute distress Orientation/consciousness: patient oriented x3 HEENT Other: Whisper test: pass Neuro Other: Balance: Normal Get up and walk: able to Romberg: negative Tandem gait: able to General: patient oriented x3 Assessment & Plan Assessment & Plan (1) Annual physical exam: Code(s): Z00.00 - Encounter for general adult medical examination without abnormal findings (2) Impaired glucose tolerance: Code(s): R73.02 - Impaired glucose tolerance (oral) Plan: A1c 5.6 07/2022 (3) Hypercholesterolemia: Code(s): E78.00 - Pure hypercholesterolemia, unspecified Plan: Continue atorvastatin 80 mg daily Low-cholesterol diet (4) COPD (chronic obstructive pulmonary disease): Code(s): J44.9 - Chronic obstructive pulmonary disease, unspecified Plan: Stable Continue albuterol inhaler p.r.n. (5) Hypertension: Code(s): I10 - Essential (primary) hypertension Plan: Goal BP equal or less than 140/90 Low-sodium diet Not on pharmacological intervention at this time (6) Colonoscopy refused: Code(s): Z53.20 - Procedure and treatment not carried out because of patient's decision for unspecified reasons Quality Reporting (2019) Depression/Bipolar (159/160/161/177) PHQ-9: Total score: 0 Coding Level of Care Code Medicare First (G0438) Diagnoses Annual physical exam Z00.00 Impaired glucose tolerance R73.02 Hypercholesterolemia E78.00 COPD (chronic obstructive pulmonary disease) J44.9 Hypertension I10 Colonoscopy refused Z53.20 CPT Codes Advance Care Planning - Advance Care Planning discussion: On file, no changes ([id number]) Advance Care Planning - Time spent: 1-15 minutes, on File ([id number]) Additional Codes JOYCE-7 Assessment Billing - JOYCE-7 Assessment Tool: JOYCE-7 Assessment 77033 ([id number]) Advance Care Planning Advance Care Planning discussion: On file, no changes Date of discussion: 05/16/23 Who was present: pt and synthetic cloth binding 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
== END 2023-05-16 09:25 | disposition home or self-care (01) ==
PROVIDERS: PCP Internal Medicine; Visit Provider Nurse Practitioner Family
DX: Z00.00 Encounter for general adult medical examination without abnormal findings (principal); R73.02 Impaired glucose tolerance (oral); J44.9 Chronic obstructive pulmonary disease, unspecified; I10 Essential (primary) hypertension; E78.00 Pure hypercholesterolemia, unspecified
CPT/HCPCS: 1123F; G0438

== ENCOUNTER 2023-08-22 08:23 | Outpatient (AMB) | payer MEDICARE, SELFPAY ==
--- NOTE | 2023-08-22 08:31 | A.OFFPC_ITS ---
Vital Signs 08/22/23 08:33 Height 5 ft 10 in Weight 170 lb 4 oz BMI 24.4 BP 110/64 Blood Pressure Location Lt brachial Position Sitting Pulse 79 Pulse Source Pulse Oximeter Pulse Oximetry (%) 94 Oxygen Delivery Method Room Air Intake Visit Reasons: 3mth f/u Intake Note: Patient is here to follow up on HTN, COPD, CAD. Ultrasound Technologist Sonographer Required: No Non Destructive Testing Specialist: Present Accompanied by: Brother Allergies No Known Allergies Allergy (Verified 08/22/23 08:43) Medication List - Last Reconciled 08/22/23 by GUALBERTO Hensley albuterol sulfate 90 mcg/actuation (ProAir HFA) 2 puffs inhalation Q6H PRN aspirin (Adult Aspirin Regimen) 81 mg PO DAILY atorvastatin 80 mg PO DAILY Tobacco use date assessed: 08/22/23 Fall risk assessment: No Falls in past year Last assessed Fall Risk: 08/22/23 Dental Screening Dental Screen Date: 08/22/23 Did you have a dental visit in the last 12 months?: Yes Did you have a dental problem in the last 6 months where you did not have access to dental care?: No Was dental information given to patient?: Patient has dentist HPI HPI Comments History of Present Illness Details 63-year-old male past medical history si gnificant for CAD, hypertension, COPD, hypercholesteremia, impaired glucose tolerance. Patient of last seen in May. Patient presents today for follow-up visit. Patient denies any acute concerns. Last complete blood work obtained in November, fasting lab work entered. [facility] Medical History Atrial fibrillation CAD (coronary artery disease) Central retinal vein occlusion, left eye Cognitive impairment COPD (chronic obstructive pulmonary disease) COVID-19 CVA (cerebral vascular accident) Hypercholesterolemia Hypertension Peripheral vascular disease Pneumonia due to COVID-19 virus Seizure disorder Vitamin D deficiency Surgical History History of prostate biopsy History of toe surgery History of cataract surgery Family History Father Hypertension Mother CVD (cardiovascular disease) Stroke Myocardial infarction Maternal Grandmother Rectal cancer Paternal Uncle Gastric cancer Maternal Uncle Stroke (Reviewed 08/22/23 @ 08:32 by XENA Savage Household Members: None Housing: Apartment Do you presently have visiting nurse or other home services: No Alcohol intake: never Patient Tobacco Use Status: Never used Tobacco e-Cigarette/Vaping Use: Never Used Second Hand Smoke Exposure: No service: No Current occupational status: employed Current occupational exposures/hazards: No Cognitive needs: No Hearing needs: No Vision needs: Yes Questionnaire Thrive Questionnaire Date Thrive assessed: 05/16/23 JOYCE-7 AMB Questionnaire JOYCE-7 Date JOYCE - 7 assessed: 12/15/22 Source: Developed by Drs. Martir Montiel, Sarah Garcia, Virgilio Sage and colleagues, with an educational dolores from [employer]. Review of Systems Const Denies chills, Denies fatigue, Denies fever(s) and Denies poor appetite Eyes Denies no additional complaints ENT Reports Normal hearing present Card Denies chest pain, Denies syncope, Denies rapid heart rate and Denies dyspnea Resp Denies cough and Denies dyspnea GI Denies change in stool character, Denies constipation, Denies diarrhea, Denies nausea and Denies vomiting Denies dysuria, Denies urinary frequency and Denies urinary urgency Neuro Reports Normal hearing present, Denies confusion and Denies syncope Psych Denies confusion Endo Denies fatigue Physical exam (Primary Care) Vital Signs: Last Vital Signs Pulse 79 08/22/23 08:33 BP 110/64 08/22/23 08:33 Pulse Ox 94 08/22/23 08:33 Oxygen Delivery Method Room Air 08/22/23 08:33 BMI result Body Mass Index 24.4 Tobacco/Smoking Status: Tobacco use Status Tobacco use date assessed 08/22/23 08/22/23 08:38 Patient Tobacco Use Status Never used Tobacco 08/22/23 08:31 e-Cigarette/Vaping Use Never Used 08/22/23 08:31 Thrive Assessment: Date of Thrive Assessment Date Thrive assessed 05/16/23 08/22/23 08:31 Const General: No confusion Orientation/consciousness: No confusion HENMT Head: Yes normocephalic and Yes atraumatic Eyes Conjunctivae: conjunctivae normal Chest Chest palpation & inspection: normal inspection of the chest Resp Effort & Inspection: normal respiratory effort Auscultation: clear to auscultation bilaterally, no crackles, no rhonchi and no wheezes Cardio Rate: regular rate Rhythm: regular rhythm Heart sounds: S1 normal heart sound present and S2 normal heart sound present GI Inspection: Yes normal to inspection Neuro General: No confusion Cranial nerves: Yes Normal hearing present Extrem General: No edema Assessment and Plan Assessment & Plan (1) Hypercholesterolemia: Code(s): E78.00 - Pure hypercholesterolemia, unspecified Plan: Continue on atorvastatin 80 mg daily. Avoid fried foods, chicken skin, eggs, butter,margarine, pastries and?? red meat. Fasting lipid panel ordered. (2) COPD (chronic obstructive pulmonary disease): Code(s): J44.9 - Chronic obstructive pulmonary disease, unspecified Plan: Patient reports overall breathing is doing well has not required use of rescue inhaler. (3) Hypertension: Code(s): I10 - Essential (primary) hypertension Plan: Blood pressure optimal in office today, patient not currently on any hypertensive medication at this time. Follow low-salt diet and exercise. (4) CAD (coronary artery disease): Comment: Cardiac arrest 13 years old paroxysmal atrial fibrillation WPW status post ablation Code(s): I25.10 - Atherosclerotic heart disease of mor[place] coronary artery without angina pectoris Qualifiers: Coronary Disease-Associated Artery/Lesion type: [place] artery [place] vs. transplanted heart: morongo heart Associated angina: without angina Qualified Code(s): I25.10 - Atherosclerotic heart disease of [place] coronary artery without angina pectoris Plan: Continue on 81 mg aspirin. Plan Follow-up in 3 months. Orders: Orders Comprehensive [place]. Panel Fast Today E78.00 - Pure hypercholesterolemia, unspecified Lipid Panel Today E78.00 - Pure hypercholesterolemia, unspecified Coding Level of Care Code Est Pt Level 4 (36082) Diagnoses Hypercholesterolemia E78.00 COPD (chronic obstructive pulmonary disease) J44.9 Hypertension I10 Coronary artery disease involving morongo coronary artery of morongo heart without angina pectoris I25.10 Coronary Disease-Associated Artery/Lesion type: [place] artery [place] vs. transplanted heart: morongo heart Associated angina: without angina
[2023-08-22 08:33] VITALS: BP 110/64; PULSE 79; O2SAT 94; BMI 24.4
== END 2023-08-22 08:57 | disposition home or self-care (01) ==
PROVIDERS: PCP Internal Medicine; Visit Provider Nurse Practitioner Family
DX: E78.00 Pure hypercholesterolemia, unspecified (principal); J44.9 Chronic obstructive pulmonary disease, unspecified; I10 Essential (primary) hypertension; I25.10 Atherosclerotic heart disease of native coronary artery without angina pectoris
CPT/HCPCS: 99214

== ENCOUNTER 2023-08-22 09:03 | Outpatient (REF) | payer MEDICARE, SELFPAY ==
[2023-08-22 10:55] LABS: Alanine Aminotransferase 38 U/L (0-40); Albumin Level 4.4 g/dL (3.5-5.0); Alkaline Phosphatase 58 U/L (39-117); Anion Gap 12 (12-20); Aspartate Amino Transferase 25 U/L (5-37); Bilirubin Total 1.4 mg/dL (0.0-1.0); Blood Urea Nitrogen 22 mg/dL (9-16); Calcium 9.2 mg/dL (8.4-10.2); Carbon Dioxide 26 mmol/L (22-29); Chloride 107 mmol/L (96-108); Cholesterol 153 mg/dL (<200); Estimated Glomerular Filt Rate > 60; Glucose Fasting 96 mg/dL (60-99); HDL Cholesterol 83 mg/dL (>40); LDL Cholesterol Calculated 61 mg/dL (<100); Sodium 141 mmol/L (135-145); Total Protein 7.2 g/dL (6.5-8.0); Triglycerides 46 mg/dL (<150)
== END 2023-08-22 09:04 | disposition home or self-care (01) ==
LOC: HO.LAB 09:03
PROVIDERS: PCP Internal Medicine; Visit Provider Nurse Practitioner Family
DX: E78.00 Pure hypercholesterolemia, unspecified (principal)
CPT/HCPCS: 36415; 80053; 80061